=== PATIENT | female | born 1970 | race Caucasian/White ===

== ENCOUNTER 2023-10-12 11:10 | Emergency (ER) | payer OTHER, SELFPAY ==
[2023-10-12 11:19] VITALS: BP 159/95; PULSE 79; RESP 18; TEMP 36.6; O2SAT 100; BMI 28.3
--- NOTE | 2023-10-12 11:34 | XR_ITS ---
The [address] [address] Patient Name: GAETANO DUNHAM MRN: [id number] date: 1970 Sex: F Assigned Patient Location: ER Current Patient Location: ER Accession/Order Number: [id number] Exam Date: 10/12/2023 11:58 Report Date: 10/12/2023 12:13 At the request of: MADELAINE KNUTSON Procedure: XR chest 2V EXAM: XR chest 2V HISTORY: Inhalation injury. COMPARISON: Chest radiograph dated 10/18/2019. TECHNIQUE: PA and lateral views of the chest performed. FINDINGS: The trachea is midline. The heart size is normal. The cardiac mediastinal silhouette and hilar shadows are normal. The lung bolton are clear. There is no pneumothorax or osseous abnormality. XR/XR chest 2V IMPRESSION: Unremarkable PA and lateral views of the chest. Electronically authenticated by: KENTON BLANCO Date: 10/12/2023 12:13
[2023-10-12] MEDS: ONDANSETRON 4 MG RAPDIS TABLET SL (11:56)
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
== END 2023-10-12 13:30 | disposition home or self-care (01) ==
PROVIDERS: Emergency Provider Emergency Medicine; PCP Nurse Practitioner Family
DX: T65.891A Toxic effect of other specified substances, accidental (unintentional), initial encounter (principal); J68.0 Bronchitis and pneumonitis due to chemicals, gases, fumes and vapors
CPT/HCPCS: 71046; 99283

== ENCOUNTER 2024-06-30 15:33 | Emergency (ER) | payer OTHER, SELFPAY ==
[2024-06-30] VITALS (19 sets, daily range): BP systolic 124–178; BP diastolic 80–106; PULSE 64–103; TEMP 37; O2SAT 98–100; BMI 28.3
--- NOTE | 2024-06-30 15:44 | ECG_ITS ---
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
--- NOTE | 2024-06-30 15:47 | CT_ITS ---
The [address] [address] Patient Name: GAETANO DUNHAM MRN: [id number] date: 1970 Sex: F Assigned Patient Location: ER Current Patient Location: ER Accession/Order Number: [id number] Exam Date: 06/30/2024 16:32 Report Date: 06/30/2024 17:54 At the request of: SANDOVAL BEAN Procedure: CT head/brain wo con EXAM: CT head/brain wo con HISTORY: Headache and hypertension. TECHNIQUE: Axial CT scans through the head were obtained without IV contrast administration. Dose reduction techniques were achieved by using: automated exposure control and/or adjustment of mA and /or kV according to patient size and/or the use of an iterative reconstruction technique. COMPARISON: 10/18/2019. FINDINGS: The cerebral hemispheres have normal white and newsome matter and corticomedullary differentiation. To the limit of CT, the posterior fossa appears unremarkable. The ventricular system and cortical sulci are normal for the patient's age. No area of abnormal mass-effect or edema or intracranial hemorrhage. The visualized orbits show no abnormal mass. The visualized paranasal sinuses show no air-fluid level. Mastoid air cells are clear. CT/CT head/brain wo con IMPRESSION: No acute intracranial process. Electronically authenticated by: LAKSHMI GAITAN Date: 06/30/2024 17:54
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
[2024-06-30 15:57] LABS: Basophils Percent Auto 0.4 % (0.2-2.0); Eosinophils Absolute Auto 0.1 10^3/uL (0.0-0.7); Eosinophils Percent Auto 1.5 % (0.9-7.0); Hematocrit 40.2 % (36.0-48.0); Hemoglobin 13.4 g/dL (12.0-16.0); Immature Granulocytes Abs Auto 0.02 10^3/uL (0.00-0.03); Immature Granulocytes Pct Auto 0.3 % (0.0-0.5); Lymphocytes Absolute Auto 2.6 10^3/uL (1.2-3.8); Lymphocytes Percent Auto 32.7 % (20.5-60.0); Mean Corpuscular HGB Conc 33.3 g/dL (29.9-35.2); Mean Corpuscular Hemoglobin 34.8 pg (26.7-34.0); Mean Corpuscular Volume 104.4 fL (81.0-99.0); Mean Platelet Volume 9.8 fL (9.5-13.5); Monocytes Absolute Auto 0.7 10^3/uL (0.3-0.8); Monocytes Percent Auto 8.7 % (1.7-12.0); Neutrophils Absolute Auto 4.4 10^3/uL (1.4-6.5); Neutrophils Percent Auto 56.4 % (43.0-75.0); Platelet Count 223 10^3/uL (150-450); Red Blood Count 3.85 10^6/uL (4.20-5.40); Red Cell Distribution Width 12.3 % (11.0-15.0); White Blood Count 7.8 10^3/uL (4.0-11.0)
[2024-06-30 16:04] LABS: Anion Gap 15.9; BUN Creatinine Ratio 13.2; Calcium 9.3 mg/dL (8.5-10.1); Carbon Dioxide 21.4 mmol/L (21.0-32.0); Chloride 107 mmol/L (98-107); Estimated GFR (African America >60 (>=60 mL/min/1.73m^2); Estimated GFR (Non-African Ame >60 (>=60 mL/min/1.73m^2); Glucose 105 mg/dL (74-106); Potassium 3.3 mmol/L (3.5-5.1); Sodium 141 mmol/L (136-145)
[2024-06-30] MEDS: DEXAMETHASONE SOD PHOS 10 MG/ML VIAL IV (16:18)
[2024-06-30] MEDS: DIPHENHYDRAMINE HCL 50 MG/ML VIAL 25 MG IV (16:18)
[2024-06-30] MEDS: METOCLOPRAMIDE HCL 10 MG/2 ML VIAL IVP (16:21)
[2024-06-30] MEDS: HYDRALAZINE HCL 20 MG/ML VIAL 10 MG IVP (16:22)
--- NOTE | 2024-06-30 18:23 | ED.GENADUL1 ---
HPI HPI - General Adult General Chief complaint: Headache Stated complaint: headache, blurred vision Time Seen by Provider: 06/30/24 15:42 Source: patient Mode of arrival: walk-in Limitations: no limitations History of Present Illness HPI narrative: 53 year old female presents to the ED for a frontal headache, nausea. Onset was a few days ago. Denies fever, chills, dizziness, vision changes. Denies neck pain/stiffness, emesis. She has tried OTC medication without relief. Her BP was elevated upon arrival. States years ago she was on Lisinopril; states she was taken off of the medication. Related Data Previous Rx's ?Medication ?Instructions ?Recorded albuterol sulfate 90 mcg/actuation 2 inh inhalation Q8H PRN 10/12/23 aerosol inhaler bronchospasm #6.7 grams joqjjsfwim-qvizkdijmibnx-csmeshqk 1 cap PO Q8H PRN pain #10 caps 06/30/24 50 mg-300 mg-40 mg capsule (Fioricet) Allergies Allergy/AdvReac Type Severity Reaction Status Date / Time doxycycline Allergy Mild Abdominal Verified 06/30/24 15:41 Pain Penicillins Allergy Mild Abdominal Verified 06/30/24 15:41 Pain tetracycline Allergy Mild Abdominal Verified 06/30/24 15:41 Pain Opioid HPI Opioid Management Most Recent Opioid Data: Last Pain Scale 8 06/30/24 15:48 06/30/24 Review of Systems ROS Constitutional Denies: fever or chills Eyes Denies: change in vision or blurry vision Ears, nose, mouth, and throat Denies: throat pain, neck pain, nasal discharge or nasal congestion Cardiovascular Denies: chest pain Respiratory Denies: shortness of breath Gastrointestinal Reports: nausea; Denies: abdominal pain or vomiting Musculoskeletal Denies: back pain or neck pain Integumentary/Breast Denies: rash Neurological Reports: headache; Denies: numbness in extremities, weakness in extremities, lack of coordination or dizziness PFSH PFSH Social History Smoking status: Current every day smoker Little interest or pleasure in doing things: not at all Feeling down, depressed, or hopeless: not at all Exam Constitutional Vital Signs, click to edit/add: Last Vital Signs Temp 98.6 F 06/30/24 15:35 Pulse 64 06/30/24 18:10 Resp 14 06/30/24 18:10 BP 142/85 H 06/30/24 18:00 Pulse Ox 99 06/30/24 17:40 O2 Del Method Room Air 06/30/24 16:59 Common normals: no apparent distress General appearance: cooperative HENMT Common normals: normocephalic Face and sinus: normal facial exam Nose: external nose normal External ear: external ears normal Mouth: oral and palatal mucosa normal, lip normal and tongue normal Throat: posterior oropharynx normal and uvula midline Eye Common normals: PERRL, EOMs intact bilaterally, conjunctivae normal and no scleral icterus Neck & C-Spine Common normals: supple and no meningeal signs Chest Chest: symmetrical chest wall rise Respiratory Common normals: normal respiratory effort Effort & inspection: able to speak in complete sentences Cardio Common normals: regular rate and regular rhythm Neuro Common normals: oriented x3, CN's II-XII intact bilaterally, moves all extremities and no focal motor deficits Sensorium/orientation: awake and alert Speech: speech normal Gait (neuro): normal gait Course Vital Signs Vital signs: Vital Signs Temperature 98.6 F 06/30/24 15:35 Pulse Rate 103 H 06/30/24 15:35 Respiratory Rate 18 06/30/24 15:35 Blood Pressure 178/106 H 06/30/24 15:35 Pulse Oximetry 98 06/30/24 15:35 Oxygen Delivery Method Room Air 06/30/24 15:35 Temperature 98.6 F 06/30/24 15:35 Pulse Rate 64 06/30/24 18:10 Respiratory Rate 14 06/30/24 18:10 Blood Pressure 142/85 H 06/30/24 18:00 Pulse Oximetry 99 06/30/24 17:40 Oxygen Delivery Method Room Air 06/30/24 16:59 Medical Decision Making [facility] Narrative Medical decision making narrative: CBC and BMP were unremarkable. CT scan of her head was negative for acute findings. The patient presented hypertensive; she was given hydralazine with improvement. She was given IV medication for her GANDARA with improvement. Findings were discussed. Follow up with pcp for a recheck, further evaluation and treatment. A prescription was provided for Fioricet. Medical Records Medical records reviewed: Yes I reviewed the patient's medical records Lab Data Lab results reviewed: Yes I reviewed the patient's lab results Labs: Lab Results 06/30/24 Range/Units 15:46 WBC 7.8 (4.0-11.0) 10^3/uL RBC 3.85 L (4.20-5.40) 10^6/uL Hgb 13.4 (12.0-16.0) g/dL Hct 40.2 (36.0-48.0) % MCV 104.4 H (81.0-99.0) fL MCH 34.8 H (26.7-34.0) pg MCHC 33.3 (29.9-35.2) g/dL RDW 12.3 (11.0-15.0) % Plt Count 223 (150-450) 10^3/uL MPV 9.8 (9.5-13.5) fL Neut % (Auto) 56.4 (43.0-75.0) % Lymph % (Auto) 32.7 (20.5-60.0) % [place] % (Auto) 8.7 (1.7-12.0) % Eos % (Auto) 1.5 (0.9-7.0) % Baso % (Auto) 0.4 (0.2-2.0) % Neut # (Auto) 4.4 (1.4-6.5) 10^3/uL Lymph # (Auto) 2.6 (1.2-3.8) 10^3/uL [place] # (Auto) 0.7 (0.3-0.8) 10^3/uL Eos # (Auto) 0.1 (0.0-0.7) 10^3/uL Baso # (Auto) 0.0 (0.0-0.1) 10^3/uL Abs Immat Gran (auto) 0.02 (0.00-0.03) 10^3/uL Imm/Tot Granulo (auto) 0.3 (0.0-0.5) % Sodium 141 (136-145) mmol/L Potassium 3.3 L (3.5-5.1) mmol/L Chloride 107 (98-107) mmol/L Carbon Dioxide 21.4 (21.0-32.0) mmol/L Anion Gap 15.9 BUN 10.0 (7.0-18.0) mg/dL Creatinine 0.76 (0.55-1.02) mg/dL Est GFR ( Amer) >60 (>=60 mL/min/1.73m^2) Est GFR (Non-Af Amer) >60 (>=60 mL/min/1.73m^2) BUN/Creatinine Ratio 13.2 Glucose 105 (74-106) mg/dL Calcium 9.3 (8.5-10.1) mg/dL Imaging Data CT scan - head: Attestation: I have reviewed the pertinent imaging results. Radiologist's impression: ITS Impressions Head CT 06/30/24 15:47 IMPRESSION: No acute intracranial process. Electronically authenticated by: LAKSHMI GAITAN Date: 06/30/2024 17:54 ECG Data Attestation: ?I have reviewed the pertinent ECG results. (EKG was reviewed by the attending physician. It showed sinus rhythm at a rate of 95. No acute ST segment changes. ) Interpretation: Measurements Intervals Tram Rate: 95 P: 43 VA: 126 QRS: 31 QRSD: 86 T: 51 QT: 356 QTc: 408 Interpretive Statements 1100 Sinus rhythm 9110 normal ECG No previous ECG available for comparison Discharge Plan Discharge Chief Complaint: Headache Clinical Impression: Headache, Elevated blood pressure reading Patient Disposition: Home, Self-Care Time of Disposition Decision: 18:16 Condition: Good Mode of Transportation: Private Vehicle Prescriptions / Home Meds: New nzhgsygedv-rnczdqfkobjzf-dpsq [Fioricet] 50-300-40 mg capsule 1 cap PO Q8H PRN (Reason: pain) Qty: 10 0RF No Action albuterol sulfate 90 mcg/actuation HFA aerosol inhaler 2 inh inhalation Q8H PRN (Reason: bronchospasm) Qty: 6.7 0RF Print Language: [place] Islander Instructions: Acute Headache (ED), Hypertension (ED) Additional Instructions: Return to the ER for new or worsening symptoms. Referrals: Jc Rutledge MD [Physician] - 1 week ALIDA OGLESBY [Primary Care Provider] - 1 week
== END 2024-06-30 18:30 | disposition home or self-care (01) ==
PROVIDERS: Nurse Practitioner Family; Emergency Provider Emergency Medicine; PCP Nurse Practitioner Family
DX: R51.9 Headache, unspecified (principal); R03.0 Elevated blood-pressure reading, without diagnosis of hypertension; F17.200 Nicotine dependence, unspecified, uncomplicated
CPT/HCPCS: 36415; 70450; 80048; 85025; 93005; 96374; 96375; 99285; J0360; J1100; J1200; J2765

== ENCOUNTER 2024-07-18 08:07 | Outpatient (OUT) | payer OTHER, SELFPAY ==
--- OUTSIDE RECORDS SUMMARY | 2024-07-18 08:20 | XMS_ITS | CCD ---
Author Organization [facility] Care Team Providers Care Global Climate Change Analyst Name Role Phone PHYSICIAN, DEFAULT Admitting Unavailable PHYSICIAN, DEFAULT Attending Unavailable PHYSICIAN, DEFAULT Admitting Unavailable PHYSICIAN, DEFAULT Attending Unavailable PAY, DR BURKETT Attending Unavailable PAY, DR BURKETT Admitting Unavailable KUNS, DR ALIDA Flood Primary Care Unavailable Hermes Landin DO Primary Care Provider Allergies Allergy Classification Reported Allergen(s) Allergy Type Date of Onset Reaction(s) Facility Macrolides (antibiotic) (1 source) Azithromycin Drug Allergy [facility] Penicillins (antibiotic) (1 source) Penicillin Drug Allergy [facility] Tetracyclines (antibiotic) (1 source) Tetracycline Drug Allergy [facility] (3 sources) Penicillins Allergy to substance 10-24-201 8 [facility] (3 sources) Tetracyclines Allergy to substance 10-24-201 8 [facility] (1 source) Azithromycin Drug Allergy 10-24-201 8 Pending sale to [facility] (1 source) Tetracycline Drug Allergy Anaphylaxis [facility] Medications Current Medications Medication Drug Class(es) Dates Sig (Normalized) Sig (Original) [id number] 200 actuat albuterol 0.09 mg/actuat metered dose [...] 15, 2024 12:00am May 06, 2024 9:43am topiramate 100 mg oral tablet (1 source) topiramate (TOPA MAX) 100 mg tablet Take 150 mg by mouth 2 (two) times a day. Active 24 hr venlafaxine 75 mg extended release oral capsule (1 source) Serotonin and Norepinephrine Reuptake Inhibitor take 1 capsule by mouth once daily venlafaxine XR (EFFEXOR-XR) 75 mg 24 hr capsule Take 225 mg by mouth daily. Active Problems Active Problems Problem Classification Problem Date Documented Da [...] Translations: [Acute maxillary sinusitis, unspecified] 05-06-2024 Episodic Past or Other Problems Problem Classification Problem Date Documented Date Episodic/Chronic Diseases of mouth; excluding dental (1 source) Abscess of submandibular region; Translations: [Cellulitis and abscess of mouth] Onset: 10-24-2018 10-24-2018 Episodic Skin and subcutaneous tissue infections (1 source) Abscess of neck; Translations: [Cutaneous abscess of neck] Onset: 10-24-2018 10-24-2018 Episodic Results Test Name Value Interpretation Reference Range Facil ity Influenza virus B Ag [Presen ce] in Upper respiratory specimen by Rapid immunoassayon 04-15-2024 FLUBV Ag IA.rapid Ql (Nph) Negative [facility] No Panel Informationon 04-15 Influenza Type A (Rapid) Negative [facility] POC SARS CoV-2 Antigen Negative [facility] Vital Signs Date Time Vital Sign Value Performing Clinician Faci lity 05-06-2024 09:51-0400 Body height 154.94 cm [facility] 05-06-2024 09:51-0400 Body mass index (BMI) [Ratio] 29.2 kg/m2 [facility] 05-06-2024 09:51-0400 Body temperature 97.9 [degF] [facility] 05-06-2024 09:51-0400 Body weight 70.3 kg [facility] 05-06-2024 09:51-0400 Diastolic blood pressure 87 mm[Hg] [facility] 05-06-2024 09:51-0400 Heart rate 94 /min [facility] 05-06-2024 09:51-0400 Respiratory rate 16 /min [facility] 05-06-2024 09:51-0400 SaO2% (BldA) [Mass fraction] 99 % [facility] 05-06-2024 09:51-0400 Systolic blood pressure 157 mm[Hg] [facility] 04-15-2024 13:19-0400 Body height 154.94 cm [facility] 04-15-2024 13:19-0400 Body mass index (BMI) [Ratio] 29.3 kg/m2 [facility] 04-15-2024 13:19-0400 Body temperature 98.6 [degF] [facility] 04-15-2024 13:19-0400 Body weight 70.53 kg [facility] 04-15-2024 13:19-0400 Heart rate 103 /min [facility] 04-15-2024 13:19-0400 Respiratory rate 18 /min [facility] 04-15-2024 13:19-0400 SaO2% (BldA) [Mass fraction] 98 % [facility] Encounters Encounter Date Encounter Type Care Provider Facility Start: 06-30-2024 End: 07-02-2024 Telephone encounter Deanna Estevez [facility] Internal Medicine - Family Medicine Start: 05-06-2024 End: 05-06-2024 ambulatory [facility] Work Phone: Start: 05-06-2024 End: 05-06-2024 Patient encounter procedure [facility] Physician [facility] Work Phone: Start: 04-15-2024 End: 04-15-2024 ambulatory [facility] Work Phone: Start: 04-15-2024 End: 04-15-2024 Patient encounter procedure [facility] Physician [facility] Work Phone: Start: 12-24-2020 End: 12-24-[address] MADELAINE KNUTSON Facility: Start: 11-18-2018 End: 11-19-2018 Patient encounter procedure DEFAULT PHYSICIAN Facility:[facility] Start: 10-24-2018 End: 10-25-2018 Patient encounter procedure DEFAULT PHYSICIAN Facility:[facility] Plan of Treatment Date Care Activity Detail Author Start: 04-13-2024 Influenza vaccination Influenza Vaccine [facility] Start: 2022 Administration of varicella zoster vaccine Zoster (Shingles) Vaccine (1 of 2) [facility] Start: 1993 Screening for malignant neoplasm of cervix Pap Smear [facility] Start: 10-23-1991 DTaP,Tdap and Td Vaccines (1 - Tdap) DTaP,Tdap and Td Vaccines (1 - Tdap) [facility] Start: 1990 Adult BMI Screening Adult BMI Screening [facility] Start: 1984 Depression Screening Depression Screening [facility] Start: 1984 Tobacco Screening Tobacco Screening [facility] Immunizations Immunization Date Immunization Notes Care Provider Fa cility 05-14-2018 influenza, seasonal, injectable Deanna Estevez [facility] 05-14-2018 influenza virus vaccine, unspecified formulation Deanna Estevez [facility] Payers Date Payer Category Payer Medicaid HMO [employer] [id number] 1970 Unknown [id number] 1972 Unknown [id number] 1972 Unknown [id number] 1959 Private Health Insurance [id number] Private Health Insurance [employer] [id number] Unknown Social History Date Type Detail Facility Start: 04-15-2024 Tobacco smoking stat [facility] Smoker (finding) [facility] Start: 1970 Sex Assigned At Female F [facility] Start: 10-24-2018 Tobacco smoking stat [facility] Smokes tobacco daily [facility] History of tobacco use Cigarette Smoker P [facility] Start: 10-24-2018 Tobacco use and exposure Smokeless tobacco non-user [facility] Start: 10-29-2018 Alcoholic beverage intake Current drinker of alcohol (finding) [facility] Start: 06-25-2019 End: 09-23-2020 History of Social function [facility] Start: 06-25-2019 End: 09-23-2020 Tobacco use panel [facility] Childcare Unknown [facility] Start: 10-24-2018 Tobacco Comment pt declined [facility] Start: 10-19-2018 Alcohol Comment [facility]AL [facility] Start: 1970 Sex assigned at Not on file P [facility] Start: 06-05-2018 Sex Female (finding) [facility] Goals Date Patient Goal Desired Activity /State Personal health goal Comment on above: Formatting of this n ote might be different from the original. Evaluation of progress towards goal: home with self care.- Selam Joy RN 10/24/18 12:11 PM Note 06-30-2024 Telephone Encounter - Deanna Estevez CMA - 06/30/2024 10:29 AM ESTTelephone Encounter - Hermes Landin DO - 06/30/2024 10:29 AM EST Note Date & Type Note Facility 06-30-2024 Miscellaneous Notes Formattin g of this note might be different from the original. Patient called and has not had insurance and she does now so wanted to reestablish care is that okay? ok Let message to reestablish care documented in this encounter [facility] [email or web address] [facility] Telephone encounter Note 06-30-2024 Telephone Encounter - Deanna Estevez CMA - 06/30/2024 10:29 AM EST Note Date & Type Note Facility 06-30-2024 Telephone encount er Note Patient called and has not had insurance and she does now so wanted to reestablish care is that okay? [facility] [email or web address] [facility] Telephone encounter Note 06-30-2024 Telephone Encounter - Hermes Landin DO - 06/30/2024 10:29 AM EST Note Date & Type Note Facility 06-30-2024 Telephone encounter Note ok [facility] Work Phone: Telephone encounter Note 06-30-2024 Telephone Encounter - Deanna Estevez CMA - 06/30/2024 10:29 AM EST Note Date & Type Note Facility 06-30-2024 Telephone encount er Note Let message to reestablish care [facility] Evaluation note Note Date & Type Note Facility Evaluation note No assessment information availa [facility] Work Phone: Evaluation note Note Date & Type Note Facility Evaluation note Diagnosis Onset Date Acute exacerbation of asthma with allergic rhinitis noneactive Acute maxillary sinusitis [facility] [place] [facility] Work Phone: Instructions Note Date & Type Note Facility Instructions Not on filedocumented in this en counter [facility] Summary Purpose Family History Relationship Condition Age at Onset Recorded Date/T osvaldo father Diabetes mellitus Unknown Hypertension Unknown mother Diabetes mellitus Unknown Advance Directives Advance Directive Response Recorded Date/ Time Advance Directives No April 1:13pm Advance Directive Response Recorded Date/ Time Advance Directives No April 1:12pm Date Activated Date Inactivated Comments 10/24/2018 1:16 AM 10/26/2018 6:17 PM Chief Complaint and Reason for Visit Chief Complaint Sore throat Chief Complaint Sore throat sore throat, asthma issues Reason for Visit Acute exacerbation o f asthma with allergic rhinitis Acute maxillary sinusitis Additional Source Comments INFORMATION SOURCE (unrecogn ized section and content) DATE CREATED AUTHOR 11/19/2018 [facility] DATE CREATED AUTHOR AUTHOR'S ORGANIZ ATION 01/03/2021 [facility] Care Teams (unrecognized sec tion and content) Team Status: Active Member Role Status Dates PHYSICIAN NO FAMILY Primary Care Provider Active Team Status: Inactive Member Role Status Dates Syeda Estrella APRN Attending Provider Active Start: April 15, 2024 End: April 15, 2024 PHYSICIAN NO FAMILY Primary Care Provider Active Start: April 15, 2024 End: Anahi 3rd, 2024 Team Status: Inactive Member Role Status Dates PHYSICIAN NO FAMILY Primary Care Provider Active Start: May 06, 2024 End: May 06, 2024 Shanell Quintero APRN Attending Provider Active Start: May 06, 2024 End: May 06, 2024 Global Climate Change Analyst Relationship Specialty Start Date End Date PiyushHermes orellana DO [address] [facility], [place] [address] PCP - General Family Medicine 06/05/18 Goals (unrecognized section and content) Goals may [...] BE BASED ON THE PRIMARY CLINICAL RECORDS. [employer] [facility]. provides no warranty or guarantee of the accuracy or completeness of information in this document.
[2024-07-18 08:32] LABS: Basophils Percent Auto 0.6 % (0.2-2.0); Eosinophils Absolute Auto 0.1 10^3/uL (0.0-0.7); Eosinophils Percent Auto 1.9 % (0.9-7.0); Hematocrit 40.8 % (36.0-48.0); Hemoglobin 13.5 g/dL (12.0-16.0); Immature Granulocytes Abs Auto 0.01 10^3/uL (0.00-0.03); Immature Granulocytes Pct Auto 0.2 % (0.0-0.5); Lymphocytes Absolute Auto 1.7 10^3/uL (1.2-3.8); Lymphocytes Percent Auto 31.3 % (20.5-60.0); Mean Corpuscular HGB Conc 33.1 g/dL (29.9-35.2); Mean Corpuscular Hemoglobin 34.4 pg (26.7-34.0); Mean Corpuscular Volume 104.1 fL (81.0-99.0); Mean Platelet Volume 9.7 fL (9.5-13.5); Monocytes Absolute Auto 0.5 10^3/uL (0.3-0.8); Monocytes Percent Auto 9.3 % (1.7-12.0); Neutrophils Percent Auto 56.7 % (43.0-75.0); Platelet Count 241 10^3/uL (150-450); Red Blood Count 3.92 10^6/uL (4.20-5.40); Red Cell Distribution Width 11.9 % (11.0-15.0); White Blood Count 5.3 10^3/uL (4.0-11.0)
[2024-07-18 09:32] LABS: Alanine Aminotransferase 23 U/L (14-59); Albumin Globulin Ratio 1.3; Albumin Level 3.8 g/dL (3.4-5.0); Alkaline Phosphatase 89 U/L (46-116); Anion Gap 11.8; Aspartate Amino Transferase 16 U/L (15-37); BUN Creatinine Ratio 16.7; Bilirubin Total 0.4 mg/dL (0.2-1.0); Calcium 9.2 mg/dL (8.5-10.1); Carbon Dioxide 28.1 mmol/L (21.0-32.0); Chloride 107 mmol/L (98-107); Cholesterol 217 mg/dL (<=200); Estimated GFR (African America >60 (>=60 mL/min/1.73m^2); Estimated GFR (Non-African Ame >60 (>=60 mL/min/1.73m^2); Free T3 2.56 pg/mL (2.18-3.98); Globulin 2.9 g/dL; Glucose 103 mg/dL (74-106); HDL Cholesterol 73 mg/dL (40-60); Potassium 3.9 mmol/L (3.5-5.1); Sodium 143 mmol/L (136-145); Thyroid Stimulating Hormone 1.663 uIU/mL (0.358-3.740); Total Protein 6.7 g/dL (6.4-8.2); Triglycerides 113 mg/dL (<=150); VLDL CHOLESTEROL 22.6 mg/dL
[2024-07-18 09:38] LABS: Estimated Average Glucose 117 mg/dL; Glycohemoglobin A1C 5.7 % (4.5-6.2)
[2024-07-20 11:08] LABS: Insulin 12.1 uIU/mL (2.6-24.9)
== END 2024-07-18 08:08 | disposition home or self-care (01) ==
LOC: LAB 08:13
PROVIDERS: PCP Nurse Practitioner Family; Visit Provider Nurse Practitioner Family
DX: Z00.00 Encounter for general adult medical examination without abnormal findings (principal)
CPT/HCPCS: 36415; 80053; 80061; 83036; 83525; 84436; 84443; 84481; 85025

== ENCOUNTER 2024-12-23 11:40 | Emergency (ER) | payer OTHER, SELFPAY ==
[2024-12-23 11:52] VITALS: BP 158/92; PULSE 108; TEMP 36.8; O2SAT 97; BMI 28.3
--- NOTE | 2024-12-23 11:56 | PC.NURSE ---
Pain to left foot, denies injury, no redness, swelling, or open areas noted.
--- NOTE | 2024-12-23 12:12 | ED_ITS ---
HPI HPI - General Adult General Chief complaint: Extremity Problem, Nontraumatic Stated complaint: L FOOD SWELLING & NUMBNESS Time Seen by Provider: 12/23/24 11:55 Source: patient Mode of arrival: walk-in History of Present Illness HPI narrative: 54-year-old female presents for numbness in her left foot. She describes it as a pins and needle sensation. She woke up this way yesterday morning. It is not anywhere else on her body including anywhere else on that left leg. She states it feels a little bit better than it did yesterday. She does not have back pain or an unusual headache. She was worried about a stroke or a blood clot. No calf pain or numbness between her ankle and knee Related Data Home Medications ?Medication ?Instructions ?Recorded ?Confirmed lisinopril 10 mg tablet 10 mg PO DAILY 12/23/2412/11 venlafaxine 37.5 mg 37.5 mg PO DAILY 12/23/24 capsule,extended release 24 hr Previous Rx's ?Medication ?Instructions ?Recorded albuterol sulfate 90 mcg/actuation 2 inh inhalation Q8 H PRN 10/12/23 aerosol inhaler bronchospasm #6.7 grams prednisone 10 mg tablet See Rx Instructions .Route 0 12/23/24 .COMPLEX #30 tabs Allergies Allergy/AdvReac Type Severity Reaction Status Date / Time doxycycline Allergy Mild Abdominal Verified 12/23/24 11:51 Pain Penicillins Allergy Mild Abdominal Verified 12/23/24 11:51 Pain tetracycline Allergy Mild Abdominal Verified 12/23/24 11:51 Pain Opioid HPI Opioid Management Most Recent Opioid Data: Last Pain Scale 8 06/30/24, 15:48 Review of Systems ROS Narrative A ten point review of systems is negative except as noted above. PFSH PFSH Social History Smoking status: Current every day smoker Little interest or pleasure in doing things: not at all Feeling down, depressed, or hopeless: not at all Exam Narrative Exam Narrative: Nurses note and vital signs reviewed and patient is not hypoxic. General: The patient appears well and in no apparent distress. Patient is resting comfortably on cart. Skin: Warm, dry, no pallor noted. There is no rash noted. Head: Normocephalic, atraumatic Eye: Normal conjunctiva, no drainage Ears, Nose, Mouth, and Throat: oral mucosa is moist. Nares patent. Cardiovascular: Regular Rate and Rhythm Respiratory: Patient is in no distress, no accessory muscle use, lungs are clear to auscultation, no wheezing, rales or rhonchi Back: non-tender GI: Soft and nontender Musculoskeletal: The left leg is examined. There is no swelling bruise rash or abrasion on the left foot or elsewhere on that leg. There is no swelling in the foot and there is no ankle edema. No swelling in the calf or calf tenderness or masses. Toes have full range of motion as does her ankle and knee. Neurological: A&O, normal speech Psychiatric: Cooperative Constitutional Vital Signs, click to edit/add: Last Vital Signs Temp 98.3 F 12/23/24 11:52 Pulse 108 H 12/23/24 11:52 Resp 18 12/23/24 11:52 BP 158/92 H 12/23/24 11:52 Pulse Ox 97 12/23/24 11:52 O2 Del Method Room Air 12/23/24 11:52 Course Vital Signs Vital signs: Vital Signs Temperature 98.3 F 12/23/24 11:52 Pulse Rate 108 H 12/23/24 11:52 Respiratory Rate 18 12/23/24 11:52 Blood Pressure 158/92 H 12/23/24 11:52 Pulse Oximetry 97 12/23/24 11:52 Oxygen Delivery Method Room Air 12/23/24 11:52 Temperature 98.3 F 12/23/24 11:52 Pulse Rate 108 H 12/23/24 11:52 Respiratory Rate 18 12/23/24 11:52 Blood Pressure 158/92 H 12/23/24 11:52 Pulse Oximetry 97 12/23/24 11:52 Oxygen Delivery Method Room Air 12/23/24 11:52 Medical Decision Making [facility] Narrative Medical decision making narrative: Her CT brain is negative. I have no clinical suspicion of a stroke nor DVT and this was explained to the patient. She will be placed on a course of prednisone and will follow-up with her family doctor. Treatment diagnosis and follow-up were discussed thoroughly. Differential Diagnosis Differential Diagnosis: Paresthesia Imaging Data CT scan - head: Radiologist's impression: No acute intracranial abnormality Discharge Plan Discharge Chief Complaint: Extremity Problem, Nontraumatic Clinical Impression: Paresthesia of left foot Patient Disposition: Home, Self-Care Time of Disposition Decision: 13:12 Condition: Good Mode of Transportation: Private Vehicle Prescriptions / Home Meds: New prednisone 10 mg tablet See Rx Instructions .ROUTE .COMPLEX Qty: 30 0RF Rx Instructions: 4 by mouth daily for three days then 3 by mouth daily for three days then 2 by mouth daily for three days then 1 by mouth daily for three days No Action albuterol sulfate 90 mcg/actuation HFA aerosol inhaler 2 inh inhalation Q8H PRN (Reason: bronchospasm) Qty: 6.7 0RF venlafaxine 37.5 mg capsule,extended release 24hr 37.5 mg PO DAILY lisinopril 10 mg tablet 10 mg PO DAILY Print Language: Korean Instructions: Paresthesia (ED) Referrals: JULIET HART [Primary Care Provider, Family Practice] - 1 week
== END 2024-12-23 13:19 | disposition home or self-care (01) ==
PROVIDERS: Emergency Provider Emergency Medicine; PCP Nurse Practitioner Family
DX: R20.2 Paresthesia of skin (principal); F17.200 Nicotine dependence, unspecified, uncomplicated
CPT/HCPCS: 70450; 99284